=== PATIENT | male | born 1985 | race Caucasian/White ===

== ENCOUNTER 2021-08-12 09:58 | Emergency (ER) | payer BC ==
[2021-08-12 10:08] VITALS: BP 122/73; PULSE 86; RESP 18; TEMP 97.4
[2021-08-12] MEDS ORDERED: IBUPROFEN 600 MG TAB PO STA (10:42)
--- NOTE | 2021-08-12 10:46 | XR ---
EXAMINATION TYPE: XR ankle complete RT DATE OF EXAM: 08/12/2021 COMPARISON: NONE HISTORY: Pain FINDINGS: Three views of the ankle demonstrate the ankle mortise to be intact and symmetric. The joint spaces are preserved. There is a comminuted mildly displaced fracture possibly spiral in orientation distal fibula. Bony well-corticated densities adjacent to the medial lateral malleolus hypertrophic spurring involving the articular surface of the anterior and posterior tibia. IMPRESSION: 1. Mildly displaced probable spiral comminuted fracture distal fibula. 2. Remote fractures involving the medial and lateral malleolus
--- NOTE | 2021-08-12 10:57 | ED ---
General Adult HPI - General Source: patient, RN notes reviewed Mode of arrival: ambulatory Limitations: no limitations <Mark Tompkins - Last Filed: 08/12/21 10:52> <Zuleyma Sanchez - Last Filed: 08/13/21 00:11> - General Chief complaint: Extremity Injury, Lower Stated complaint: Rt Ankle Injury Time Seen by Provider: 08/12/21 10:11 - History of Present Illness Initial comments: 36-year-old male presents for right ankle injury. 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 His skate got stuck in the ice in the fell strangely and his ankle. He heard a pop. States he has not been able to bear weight on it since much and has been trying to use crutches. Patient states he doesn't think it is broken but wants to get an x-ray to make sure.Patient has no other complaints at this time including shortness of breath, chest pain, abdominal pain, nausea or vomiting, headache, or visual changes. (Mark Tompkins) - Related Data Allergies Allergy/AdvReac Type Severity Reaction Status Date / Time No Known Allergies Allergy Verified 08/12/21 10:05 Review of Systems ROS Other: All systems not noted in ROS Statement are negative. <Mark Tompkins - Last Filed: 08/12/21 10:52> ROS Other: All systems not noted in ROS Statement are negative. <Zuleyma Sanchez - Last Filed: 08/13/21 00:11> ROS Statement: Those systems with pertinent positive or pertinent negative responses have been documented in the HPI. Past Medical History Past Medical History: No Reported History History of Any Multi-Drug Resistant Organisms: None Reported Past Surgical History: No Surgical Hx Reported Past Psychological History: No Psychological Hx Reported Smoking Status: Current every day smoker Past Alcohol Use History: Occasional Past Drug Use History: Marijuana <Mark Tompkins - Last Filed: 08/12/21 10:52> General Exam Limitations: no limitations General appearance: alert, in no apparent distress Head exam: Present: atraumatic Eye exam: Present: normal appearance, PERRL, EOMI. Absent: scleral icterus, conjunctival injection ENT exam: Present: normal exam, mucous membranes moist Neck exam: Present: normal inspection, full ROM. Absent: tenderness Respiratory exam: Present: normal lung sounds bilaterally. Absent: respiratory distress, wheezes Cardiovascular Exam: Present: regular rate, normal rhythm, normal heart sounds GI/Abdominal exam: Present: soft, normal bowel sounds. Absent: distended, tenderness Extremities exam: Present: tenderness (Tenderness to the distal fibula of the right ankle. No tenderness in the right foot including fifth metatarsal or navicular), normal capillary refill (capillary refill less than 2 seconds, DP pulse 2+ right lower extremity), joint swelling (pt has some edema noted to the lateral malleolus of the right ankle). Absent: full ROM, calf tenderness Neurological exam: Present: alert <Mark Tompkins - Last Filed: 08/12/21 10:52> Course Vital Signs 08/12/21 10:05 Temperature 97.4 F L Pulse Rate 86 Respiratory 18 Rate Blood Pressure 122/73 O2 Sat by Pulse 97 Oximetry Procedures - Orthopedic Splinting/Casting Injury #1 Side: right Lower Extremity Injury Location: short leg Lower Extremity Immobilizer: stirrup splint Other Orthopedic Equipment: crutches <Mark Tompkins - Last Filed: 08/12/21 10:52> - Orthopedic Splinting/Casting Injury #1 Additional Comments: NV status intact RLE (Mark Tompkins) Medical Decision Making <Mark Tompkins - Last Filed: 08/12/21 10:52> <Zuleyma Sanchez - Last Filed: 08/13/21 00:11> - Medical Decision Making xray of the right ankle shows a mildly displaced probable spiral comminuted fracture distal fibula. Remote fractures involving the medial and lateral malleolus noted. Patient was placed in a stirrup splint and will be kept nonweightbearing. He has crutches. He will be referred to orthopedics. He will return here for any worsening symptoms. (Mark Tompkins) I was available for consultation in the emergency department. The history and physical exam were done by the midlevel provider. I was consulted for this patients care. I reviewed the case with the midlevel provider and based on their presentation of the patient, I agree with the assessment, medical decision making and plan of care as documented. Chart was dictated using [employer] dictation software. Attempts were made to correct any dictation errors however some typographical errors may persist. Patient was seen during a national state of emergency due to the Covid-19 pandemic. (Zuleyma Sanchez) Disposition Is patient prescribed a controlled substance at d/c from ED?: No Time of Disposition: 10:56 <Mark Tompkins - Last Filed: 08/12/21 10:52> <Zuleyma Sanchez - Last Filed: 08/13/21 00:11> Clinical Impression: Closed fibular fracture Disposition: HOME SELF-CARE Condition: Good Instructions (If sedation given, give patient instructions): Ankle Fracture (ED) Additional Instructions: Take Motrin and Tylenol for pain. Keep splint dry and in place. Use crutches and remain nonweightbearing. Follow up with orthopedics by calling today for the earliest appointment. Return to the emergency room for any worsening sympt oms. Referrals: Barrington Blackwell MD [Primary Care Provider] - 1-2 days Carlos Alberto Steiner MD [Medical Doctor] - 1-2 days
== END 2021-08-12 11:27 | disposition home or self-care (01) ==
LOC: EC 09:58
DX: S82.451A Displaced comminuted fracture of shaft of right fibula, initial encounter for closed fracture (principal); F17.200 Nicotine dependence, unspecified, uncomplicated; W09.8XXA Fall on or from other playground equipment, initial encounter; Y93.22 Activity, ice hockey
CPT/HCPCS: 29515; 99283